=== PATIENT | male | born 1980 | race Caucasian/White ===

== ENCOUNTER 2021-11-17 16:49 | Emergency (ER) | payer MEDICAID ==
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
[2021-11-17] MEDS ORDERED: Cyclobenzaprine 10 MG Tab ONE (18:00)
[2021-11-17] MEDS ORDERED: traMADol 50 MG Tab ONE (18:00)
[2021-11-17] MEDS: Ondansetron 4 MG Tab.DIS PO ONE (18:30)
--- NOTE | 2021-11-19 18:34 | CT ---
Date of Service: 11/17/21 Clinical Data: INJURY LUMBAR SPINE CT: Multislice axial acquisition without IV contrast was performed. Axial images and sagittal and coronary reformations are reviewed. The vertebral bodies are of average height and in good alignment. No acute fracture or dislocation. No lytic or blastic bone lesions. No significant disk abnormalities. No extruded or protruding disks. No significant central or foraminal stenosis. No other significant findings. [id number] [facility]
--- NOTE | 2021-11-19 18:39 | CT ---
Date of Service: 11/17/21 Clinical Data: INJURY UNENHANCED CHEST CT: Multislice axial acquisition without IV contrast was performed. Axial images and sagittal and coronal reformations are reviewed. There is a 4 mm subpleural nodule in the right upper lobe medially. The lungs are otherwise clear. No areas of consolidation. No pneumothorax. No pleural effusions. The heart size is normal. No pericardial effusion. No hilar or mediastinal adenopathy. No fractures. [id number] [facility]
--- NOTE | 2021-11-19 18:44 | CT ---
Date of Service: 11/17/21\ Clinical Data: INJURY THORACIC SPINE CT: Multislice axial acquisition without IV or oral contrast was performed. Axial images and sagittal and coronal reformations are reviewed. No priors. The vertebral bodies are of average height and in good alignment. No acute fracture or dislocation. No lytic or blastic bone lesions. Minimal degenerative disk disease at multiple levels. No extruded or protruding disks. No central or foraminal stenosis. No other significant findings. [id number] [facility]
== END 2021-11-17 18:16 | disposition home or self-care (01) ==
LOC: LB.ED 16:49
DX: R07.81 Pleurodynia (principal); M54.50 Low back pain, unspecified; M79.604 Pain in right leg
CPT/HCPCS: 71250; 72128; 72131; 99283-25; A9270-GY